=== PATIENT | female | born 1980 | race African-American/Black ===

== ENCOUNTER 2020-07-07 12:51 | Inpatient (IN) | payer OTHER ==
[2020-07-07] MEDS ORDERED: chlordiazePOXIDE HCL 25 MG CAPSULE PO SCH (13:00)
[2020-07-07] MEDS ORDERED: FOLIC ACID INJECTION - 1 MG, THIAMINE HCL 100 MG, MULTIVIT INJECTION ADULT 10 ML in SOD... IVPB ONE (13:10)
[2020-07-07] MEDS ORDERED: chlordiazePOXIDE HCL 10 MG CAPSULE PO ONE (13:10)
--- NOTE | 2020-07-07 13:18 | PDOC ---
History of Present Illness - General Chief Complaint: Substance Abuse Stated Complaint: DETOX Time Seen by Provider: 07/07/20 13:07 History Source: Patient Exam Limitations: No Limitations - History of Present Illness Initial Comments: 07/07/20 13:15 40-year-old female past medical history of EtOH abuse and opioid use disorder presented to ED complaining of withdrawal symptoms. Patient states that she wants to be admitted to [facility] to receive detox. Patient's last drink was 1 day ago. Patient usually drinks 3-4 bottles of wine daily as well as uses Percocets and/or oxycodone daily (last oxycodone use was about 1 week ago). Patient states that she does usually get the shakes if she does not drink and she has a strong urge. Pt otherwise denies: fevers, chills, syncope, lightheadedness, dizziness, headaches, neck pain, chest pain, shortness of breath, palpitations, back pain, abdominal pain, nausea, vomiting, diarrhea, constipation. Past History - Medical History Allergies/Adverse Reactions: Allergies Allergy/AdvReac Type Severity Reaction Status Date / Time No Known Allergies Allergy Verified 07/07/20 12:58 Home Medications: Ambulatory Orders NK [No Known Home Medication] 07/07/20 COPD: Yes - Reproductive History Is Patient Now?: No - Psycho-Social/Smoking History Smoking History: Current every day smoker Number of Cigarettes Smoked Daily: 5 Information on smoking cessation initiated: No - Substance Abuse Hx (Audit-C & DAST Scrn) How often the patient has a drink containing alcohol: 4 0r more times/wk Number of drinks the patient has on a typical day: 5 or 6 How often the patient has six or more drinks on one occasion: Weekly Score: In Men: 4 or > Positive; In Women: 3 or > Positive: 9 Screen Result (Pos requires Nsg. Audit-10AR): Positive In the last yr the pt used illegal drug/Rx for NonMed reason: Yes Score: Yes response is considered Positive: 1 Screen Result (Positive result requires Nsg. DAST-10): Positive *Physical Exam - Vital Signs Last Vital Signs Temp Pulse Resp BP Pulse Ox 98.7 F 88 18 109/74 99 07/07/20 12:54 07/07/20 12:54 07/07/20 12:54 07/07/20 12:54 07/07/20 12:54 - Physical Exam 07/07/20 13:16 Gen: AAOx 3, no acute distress, comfortable, no signs of respiratory distress no tremors HENT: atraumatic, normocephalic with no laceration or contusion. Nasal mucosa without erythema. Oropharynx without erythema or exudates. Mucous membranes moist. No tongue fasciculation EYES: PERRL, EOM intact, conjunctiva pink NECK: supple; trachea midline; no JVD, no lymphadenopathy, or thyromegaly CV: RRR no murmurs, gallops, or rubs. CHEST: CTA b/l no wheezing, rales or rhonchi ABD: +BS/ND. no TTP; soft, no rebound, no guarding EXTREMITY: no cyanosis or erythema. 2+ dorsalis pedis, posterior tibial, and radial pulse. No pedal edema; no calf swelling or tenderness SKIN: no rash, warm and dry, no diaphoresis HEME: no purpura or ecchymosis NEURO: normal speech, CN II-XII intact, sensation intact, normal gait, no cer ebellar deficits MS: 5/5 strength in all extremities, FROM intact in all extremities. ED Treatment Course - LABORATORY CBC & Chemistry Diagram: 07/07/20 13:06 07/07/20 13:06 Medical Decision Making - Medical Decision Making 07/07/20 13:17 40-year-old female requesting detox Vital signs stable CIWA 32 Will obtain labs EKG UA and U tox Administer 1 banana bag and 20 mg of Librium When results are back will reassess and call [facility] for placement EKG WNL Labs and UA WNL Utox positive for Benzos and marijuana Although patient denies SI/HI due to auditory hallucinations which may be due to withdrawal will consult psych. [facility] called for admission, unfortunately due to insurance issues they will not accept patient. Since elevated CIWA score and unsafe for discharge pt admitted to hospitalist, Dr Richardson for further management of care. Discharge - Discharge Information Problems reviewed: Yes Clinical Impression/Diagnosis: Alcohol dependence with withdrawal Qualifiers: Complication of substance-induced condition: uncomplicated Qualified Code(s): F10.230 - Alcohol dependence with withdrawal, uncomplicated Condition: Stable - Admission Yes - Follow up/Referral - Patient Discharge Instructions - Post Discharge Activity
[2020-07-07] MEDS ORDERED: chlordiazePOXIDE 5 MG CAPSULE ONE (13:25)
[2020-07-07 14:12] LABS: BASO % 0.6 % (0-2.0); EOS % 3.2 % (0-4.5); HEMATOCRIT 39.7 % (32.4-45.2); HEMOGLOBIN 13.9 GM/dL (10.7-15.3); LYMPH % 35.5 % (8-40); MCHC 34.9 g/dl (32.0-36.0); MEAN CELL VOLUME 97.4 fl (80-96); MEAN PLT VOLUME 9.1 fl (7.5-11.1); MONO % 14.3 % (3.8-10.2); NEUT % 46.4 % (42.8-82.8); PLATELET COUNT 207 K/MM3 (134-434); RBC 4.08 M/mm3 (3.60-5.2); RDW 13.6 % (11.6-15.6); WHITE BLOOD COUNT 4.4 K/mm3 (4.0-10.0)
[2020-07-07 14:13] LABS: PH,URINE 5.5 (5.0-8.0); URINE APPEARANCE CLOUDY; URINE BILIRUBIN 1+ (NEGATIVE); URINE COLOR DK YELLOW; URINE GLUCOSE (UA) NEGATIVE (NEGATIVE); URINE KETONE 2+ (NEGATIVE); URINE LEUK ESTERASE NEGATIVE (NEGATIVE); URINE NITRITE NEGATIVE (NEGATIVE); URINE PROTEIN TRACE (NEGATIVE)
[2020-07-07 14:23] LABS: COCAINE, UR NEGATIVE ng/ml (CUTOFF=300); METHADONE, UR NEGATIVE ng/ml (CUTOFF=300); OPIATES, URI NEGATIVE ng/ml (CUTOFF=300); PHENCYCLIDINE,URINE NEGATIVE ng/ml (CUTOFF=25); URINE AMPHETAMINES NEGATIVE ng/ml (CUTOFF=500); URINE BARBITURATES NEGATIVE ng/ml (CUTOFF=200)
[2020-07-07 14:24] LABS: URINE BENZODIAZEPINES POSITIVE ng/ml (CUTOFF=200)
[2020-07-07 14:29] LABS: INR 1.04 (0.83-1.09); PROTHROMBIN TIME (PATIENT) 12.3 SEC (9.7-13.0)
[2020-07-07 14:30] LABS: ALBUMIN 4.1 g/dl (3.4-5.0); ALK PHOS 90 U/L (45-117); ANION GAP 9 MMOL/L (8-16); BLOOD UREA NITROGEN 15.7 mg/dL (7-18); CALCIUM 9.5 mg/dL (8.5-10.1); CHLORIDE 106 mmol/L (98-107); CO2 25 mmol/L (21-32); CREATININE 0.8 mg/dL (0.55-1.3); SGOT/AST 19 U/L (15-37); SGPT/ALT 30 U/L (13-61); SODIUM 140 mmol/L (136-145)
[2020-07-07 14:32] LABS: GLUCOSE,RANDOM 109 mg/dL (74-106)
--- NOTE | 2020-07-07 16:19 | EKG ---
Test Reason : Blood Pressure : / mmHG Vent. Rate : 064 BPM Atrial Rate : 064 BPM P-R Int : 128 ms QRS Dur : 092 ms QT Int : 406 ms P-R-T Axes : 026 048 040 degrees QTc Int : 418 ms NORMAL SINUS RHYTHM NORMAL ECG NO PREVIOUS ECGS AVAILABLE Confirmed by MD STEPHAN, JOON ([id number]) on 07/07/2020 4:18:48 PM Referred By: Confirmed By:JOON ROTHMAN MD
[2020-07-07] MEDS ORDERED: chlordiazePOXIDE HCL 10 MG CAPSULE PO PRN (17:03)
--- NOTE | 2020-07-07 17:05 | HP ---
CHIEF COMPLAINT: alcohol intoxication PCP: none HISTORY OF PRESENT ILLNESS: 40 yo female with PMH of etoh abuse and oxycodone abuse presents to the ED for alcohol intoxication- patient states she usually drinks around 3-4 bottles of wine a night (has been drinking for around the last 10 years) and that her last drink was yesterday- she started to feel very anxious/jittery having heart palpitations , in addition started having tactile and auditory hallucinations (no thoughts of harming herself or others) so she took her moms librium yesterday (both of her parents are alcoholics) she also been having nausea/vomiting/decreased appetite for the last week , she still felt very anxious today so she came in to the ED- she also endorses daily oxycodone use (hasn't used in about a week) and has been smoking marijuana daily for the last two weeks . she has never attempted a rehab/detox program; she has never suffered from alcohol withdrawal seizures ER course was notable for: (1) vitals wnl (2)labs wnl; utox positive for benzos and marijuana (3)received 20 of libirum and banana bag Recent Travel: denies PAST MEDICAL HISTORY: see above PAST SURGICAL HISTORY: gastric sleeve 8 years [facility] Social History: Smoking:smokes 1ppd (smoked for the last 10 years) Alcohol:3-4 bottles of wine per night Drugs: daily mairjuana use Allergies No Known Allergies Allergy (Verified 07/07/20 12:58) HOME MEDICATIONS: Home Medications Medication Instructions Recorded NK [No Known Home Medication] 07/07/20 REVIEW OF SYSTEMS CONSTITUTIONAL: Absent: fever, chills, diaphoresis, generalized weakness, malaise, loss of appetite, weight change HEENT: Absent: rhinorrhea, nasal congestion, throat pain, throat swelling, difficulty swallowing, mouth swelling, ear pain, eye pain, visual changes CARDIOVASCULAR: Absent: chest pain, syncope, palpitations, irregular heart rate, lightheadedness, peripheral edema RESPIRATORY: Absent: cough, shortness of breath, dyspnea with exertion, orthopnea, wheezing, stridor, hemoptysis GASTROINTESTINAL: Present: nasuea/vomiting/ diarrhea Absent: abdominal pain, abdominal distension, , constipation, melena, hematochezia GENITOURINARY: Absent: dysuria, frequency, urgency, hesitancy, hematuria, flank pain, genital pain MUSCULOSKELETAL: Absent: myalgia, arthralgia, joint swelling, back pain, neck pain SKIN: Absent: rash, itching, pallor HEMATOLOGIC/IMMUNOLOGIC: Absent: easy bleeding, easy bruising, lymphadenopathy, frequent infections ENDOCRINE: Absent: unexplained weight gain, unexplained weight loss, heat intolerance, cold intolerance NEUROLOGIC: Absent: headache, focal weakness or paresthesias, dizziness, unsteady gait, seizure, mental status changes, bladder or bowel incontinence PSYCHIATRIC: Absent: anxiety, depression, suicidal or homicidal ideation, hallucinations. PHYSICAL EXAMINATION Vital Signs - 24 hr 07/07/20 12:54 Temperature 98.7 F Pulse Rate 88 Respiratory 18 Rate Blood Pressure 109/74 O2 Sat by Pulse 99 Oximetry (%) GENERAL: Awake, alert, and fully oriented, in no acute distress. EYES: PEERLA: EOMI no scleral icterus . HEENT: no tongue fasiculations; dry mucous membranes LUNGS: CTA B/L no rales, rhonchi or wheezing HEART:tachycardic, normal S1 and S2 without murmur, rub or gallop. ABDOMEN: Soft, NT ND +BS in all 4 quadrants MUSCULOSKELETAL: Normal range of motion at all joints. No bony deformities or tenderness. No CVA tenderness. UPPER EXTREMITIES: no tremor appreciated LOWER EXTREMITIES: warm; well-perfused no clubbing/cyanosis or edema NEUROLOGICAL: Cranial nerves II-XII intact. Normal speech. Normal gait. PSYCHIATRIC: Cooperative. Good eye contact. Appropriate mood and affect. SKIN: Warm, dry, normal turgor, no rashes or lesions noted, normal capillary refill. Laboratory Results - last 24 hr 07/07/20 07/07/20 07/07/20 13:06 13:06 13:06 WBC 4.4 RBC 4.08 Hgb 13.9 Hct 39.7 MCV 97.4 H MCH 34.0 H MCHC 34.9 RDW 13.6 Plt Count 207 MPV 9.1 Absolute Neuts (auto) 2.0 Neutrophils % 46.4 Lymphocytes % 35.5 Monocytes % 14.3 H Eosinophils % 3.2 Basophils % 0.6 Nucleated RBC % 0 PT with INR 12.30 INR 1.04 Sodium 140 Potassium 4.0 Chloride 106 Carbon Dioxide 25 Anion Gap 9 BUN 15.7 Creatinine 0.8 Est GFR (CKD-EPI)AfAm 106.13 Est GFR (CKD-EPI)NonAf 91.57 Random Glucose 109 H Calcium 9.5 Total Bilirubin 1.0 AST 19 ALT 30 Alkaline Phosphatase 90 Total Protein 8.0 Albumin 4.1 Beta HCG, Quant < 1.0 Urine Color Urine Appearance Urine pH Ur Specific [place] Urine Protein Urine Glucose (UA) Urine Ketones Urine Blood Urine Nitrite Urine Bilirubin Urine Urobilinogen Ur Leukocyte Esterase Opiates Screen Methadone Screen Barbiturate Screen Phencyclidine Screen Ur Amphetamines Screen MDMA (Ecstasy) Screen Benzodiazepines Screen Cocaine Screen U Marijuana (THC) Screen 07/07/20 07/07/20 13:06 13:06 WBC RBC Hgb Hct MCV MCH MCHC RDW Plt Count MPV Absolute Neuts (auto) Neutrophils % Lymphocytes % Monocytes % Eosinophils % Basophils % Nucleated RBC % PT with INR INR Sodium Potassium Chloride Carbon Dioxide Anion Gap BUN Creatinine Est GFR (CKD-EPI)AfAm Est GFR (CKD-EPI)NonAf Random Glucose Calcium Total Bilirubin AST ALT Alkaline Phosphatase Total Protein Albumin Beta HCG, Quant Urine Color Dk yellow Urine Appearance Cloudy Urine pH 5.5 Ur Specific [place] 1.034 Urine Protein Trace Urine Glucose (UA) Negative Urine Ketones 2+ H Urine Blood Negative Urine Nitrite Negative Urine Bilirubin 1+ H Urine Urobilinogen 1.0 Ur Leukocyte Esterase Negative Opiates Screen Negative Methadone Screen Negative Barbiturate Screen Negative Phencyclidine Screen Negative Ur Amphetamines Screen Negative MDMA (Ecstasy) Screen Negative Benzodiazepines Screen Positive A* Cocaine Screen Negative U Marijuana (THC) Screen Positive A* ASSESSMENT/PLAN: 40 yo female with PMH of etoh abuse and oxycodone abuse presents to the ED for alcohol withdrawal #Alcohol Withdrawal -librium protocol once urine is done and patient not markedly tremulous or withdrawing currently -thiamine/folate/MVI -IVF fluid -monitor CIWA score -[facility] consult -psych consult given hallucinations however likely 2/2 intox -pepcid f/e/n not on standing fluids monitor electrolytes regualr diet dvt ppx: scds Family Medical History Family History: As Documented Other Family History: alcohol abuse Problem List - Problem (1) Alcohol dependence with withdrawal Code(s): F10.239 - ALCOHOL DEPENDENCE WITH WITHDRAWAL, UNSPECIFIED Qualifiers: Complication of substance-induced condition: uncomplicated Qualified Code(s): F10.230 - Alcohol dependence with withdrawal, uncomplicated Visit type - Emergency Visit Emergency Visit: Yes ED Registration Date: 07/07/20 Care time: The patient presented to the Emergency Department on the above date and was hospitalized for further evaluation of their emergent condition. - New Patient This patient is new to me today: Yes Date on this admission: 07/07/20 - Critical Care Critical Care patient: No ATTENDING PHYSICIAN STATEMENT I saw and evaluated the patient. I reviewed the resident's note and discussed the case with the resident. I agree with the resident's findings and plan as documented. SUBJECTIVE: OBJECTIVE: ASSESSMENT AND PLAN:
[2020-07-07] MEDS ORDERED: THIAMINE HCL 100 MG TABLET (FP) ONE ×2 (17:49→17:52)
[2020-07-07] MEDS: THIAMINE HCL 100 MG TABLET (FP) PO SCH (18:23)
[2020-07-07] MEDS: SODIUM CHLORIDE 1,000 ML IV SCH (18:25)
[2020-07-07 18:47] VITALS: BMI 29.9
[2020-07-08] MEDS ORDERED: MELATONIN 5 MG TABLETS PO ONE (00:01)
[2020-07-08] MEDS ORDERED: chlordiazePOXIDE HCL 10 MG CAPSULE PO ONE (00:18)
[2020-07-08 08:22] LABS: BASO % 0.4 % (0-2.0); EOS % 3.6 % (0-4.5); HEMATOCRIT 36.1 % (32.4-45.2); HEMOGLOBIN 12.1 GM/dL (10.7-15.3); LYMPH % 43.8 % (8-40); MCH 31.8 pg (25.7-33.7); MCHC 33.5 g/dl (32.0-36.0); MEAN CELL VOLUME 94.9 fl (80-96); MEAN PLT VOLUME 9.1 fl (7.5-11.1); MONO % 17.1 % (3.8-10.2); NEUT % 35.1 % (42.8-82.8); PLATELET COUNT 178 K/MM3 (134-434); RDW 13.7 % (11.6-15.6); WHITE BLOOD COUNT 5.4 K/mm3 (4.0-10.0)
--- NOTE | 2020-07-08 08:36 | PN ---
Teaching Attending Note Name of Resident: Mary Machuca ATTENDING PHYSICIAN STATEMENT I saw and evaluated the patient. I reviewed the resident's note and discussed the case with the resident. I agree with the resident's findings and plan as documented. SUBJECTIVE: Patient seen and examined at bedside, admitted for ?auditory hallucinations, ?Etoh intoxication but negative Etoh levels and no clinical suspicion for withdrawal/intoxication. Has h/o PSA w/ Etoh/benzos, currently endorses auditory hallucinations but denies SI/HI/VH. OBJECTIVE: GA calm, mild ?physiological tremor, speaking in full sentences HEENT NC/AT, EOMI, MMM Chest CTAB CVS S1, S2+, RRR Abd Soft, NT, ND, BS+ Ext no LE edema Vital Signs (72 hours) 07/07/20 07/07/20 07/07/20 12:54 18:05 18:34 Temperature 98.7 F 98.5 F Pulse Rate 88 64 Pulse Rate [ 84 Radial] Respiratory 18 18 18 Rate Blood Pressure 109/74 130/58 L Blood Pressure 119/70 [Left Arm] O2 Sat by Pulse 99 98 100 Oximetry (%) 07/07/20 07/07/20 07/07/20 18:54 21:00 22:00 Temperature Pulse Rate Pulse Rate [ Radial] Respiratory Rate Blood Pressure Blood Pressure [Left Arm] O2 Sat by Pulse 100 100 100 Oximetry (%) 07/08/20 05:17 Temperature 97.3 F L Pulse Rate 56 L Pulse Rate [ Radial] Respiratory 18 Rate Blood Pressure 142/71 Blood Pressure [Left Arm] O2 Sat by Pulse 100 Oximetry (%) Laboratory Results - last 24 hr 07/07/20 07/07/20 07/07/20 13:06 13:06 13:06 WBC 4.4 RBC 4.08 Hgb 13.9 Hct 39.7 MCV 97.4 H MCH 34.0 H MCHC 34.9 RDW 13.6 Plt Count 207 MPV 9.1 Absolute Neuts (auto) 2.0 Neutrophils % 46.4 Lymphocytes % 35.5 Monocytes % 14.3 H Eosinophils % 3.2 Basophils % 0.6 Nucleated RBC % 0 PT with INR 12.30 INR 1.04 Sodium 140 Potassium 4.0 Chloride 106 Carbon Dioxide 25 Anion Gap 9 BUN 15.7 Creatinine 0.8 Est GFR (CKD-EPI)AfAm 106.13 Est GFR (CKD-EPI)NonAf 91.57 Random Glucose 109 H Calcium 9.5 Total Bilirubin 1.0 AST 19 ALT 30 Alkaline Phosphatase 90 Total Protein 8.0 Albumin 4.1 Beta HCG, Quant < 1.0 Urine Color Urine Appearance Urine pH Ur Specific [place] Urine Protein Urine Glucose (UA) Urine Ketones Urine Blood Urine Nitrite Urine Bilirubin Urine Urobilinogen Ur Leukocyte Esterase Opiates Screen Methadone Screen Barbiturate Screen Phencyclidine Screen Ur Amphetamines Screen MDMA (Ecstasy) Screen Benzodiazepines Screen Cocaine Screen U Marijuana (THC) Screen Alcohol, Quantitative < 3 COVID-19 (RICARDO) 07/07/20 07/07/20 07/07/20 13:06 13:06 13:06 WBC RBC Hgb Hct MCV MCH MCHC RDW Plt Count MPV Absolute Neuts (auto) Neutrophils % Lymphocytes % Monocytes % Eosinophils % Basophils % Nucleated RBC % PT with INR INR Sodium Potassium Chloride Carbon Dioxide Anion Gap BUN Creatinine Est GFR (CKD-EPI)AfAm Est GFR (CKD-EPI)NonAf Random Glucose Calcium Total Bilirubin AST ALT Alkaline Phosphatase Total Protein Albumin Beta HCG, Quant Urine Color Dk yellow Urine Appearance Cloudy Urine pH 5.5 Ur Specific [place] 1.034 Urine Protein Trace Urine Glucose (UA) Negative Urine Ketones 2+ H Urine Blood Negative Urine Nitrite Negative Urine Bilirubin 1+ H Urine Urobilinogen 1.0 Ur Leukocyte Esterase Negative Opiates Screen Negative Methadone Screen Negative Barbiturate Screen Negative Phencyclidine Screen Negative Ur Amphetamines Screen Negative MDMA (Ecstasy) Screen Negative Benzodiazepines Screen Positive A* Cocaine Screen Negative U Marijuana (THC) Screen Positive A* Alcohol, Quantitative COVID-19 (RICARDO) Not detected 07/07/20 17:39 WBC RBC Hgb Hct MCV MCH MCHC RDW Plt Count MPV Absolute Neuts (auto) Neutrophils % Lymphocytes % Monocytes % Eosinophils % Basophils % Nucleated RBC % PT with INR INR Sodium Potassium Chloride Carbon Dioxide Anion Gap BUN Creatinine Est GFR (CKD-EPI)AfAm Est GFR (CKD-EPI)NonAf Random Glucose Calcium Total Bilirubin AST ALT Alkaline Phosphatase Total Protein Albumin Beta HCG, Quant Urine Color Urine Appearance Urine pH Ur Specific [place] Urine Protein Urine Glucose (UA) Urine Ketones Urine Blood Urine Nitrite Urine Bilirubin Urine Urobilinogen Ur Leukocyte Esterase Opiates Screen Methadone Screen Barbiturate Screen Phencyclidine Screen Ur Amphetamines Screen MDMA (Ecstasy) Screen Benzodiazepines Screen Cocaine Screen U Marijuana (THC) Screen Alcohol, Quantitative < 3 COVID-19 (RICARDO) Home Medications Medication Instructions Recorded NK [No Known Home Medication] 07/07/20 Current Medications Generic Name Dose Route Start Last Admin Trade Name Zayda PRN Reason Stop Dose Admin Famotidine 20 mg 07/08/20 10:00 Pepcid - PO DAILY ERIN Folic Acid 1 mg 07/08/20 10:00 Folic Acid - PO DAILY ERIN Sodium Chloride 1,000 mls @ 75 mls/hr 07/07/20 17:45 07/07/20 18:25 Normal Saline - IV 75 mls/hr ASDIR ERIN Administration Multivitamins/Minerals/Vitamin C 1 tab 07/08/20 10:00 Tab-A-Vit - PO DAILY ERIN Thiamine HCl 100 mg 07/07/20 17:15 07/07/20 18:23 Vitamin B1 - PO Not Given DAILY ERIN ASSESSMENT AND PLAN: 40 F Suspected acute psychotic episode v.s. malingering H/o Etoh abuse Benzodiazepine dependence Plan: Send thyroid panel, B12 levels Psych evaluation, if persistently psychotic or if psychotic symptoms worsen obtain Head CT Supplement Thiamine/FA Watch closely for withdrawal symptoms, currently BP WNL/HR WNL/EKG unremarkable no clinical signs of acute intoxication (besides Marijuana), hold off on Librium and keep PRN for now DVt ppx: OOB to chair, Heparin SC (supplement H2 [place]) Med-surg
[2020-07-08 08:55] LABS: ALBUMIN 3.2 g/dl (3.4-5.0); BILIRUBIN,TOTAL 0.8 mg/dL (0.2-1); BLOOD UREA NITROGEN 16.6 mg/dL (7-18); CALCIUM 8.5 mg/dL (8.5-10.1); CREATININE 0.7 mg/dL (0.55-1.3); PHOSPHOROUS 3.9 mg/dL (2.5-4.9); POTASSIUM 3.7 mmol/L (3.5-5.1); TOT PROT 6.2 g/dl (6.4-8.2)
--- NOTE | 2020-07-08 09:45 | CONSULT ---
Consult Detox [facility] Reason for Current Admission/Consult: Alcohol withdrawal Referred by:: Dr. Alexey Machuca - History History of Present Illness: Hx obtained from chart 40-year-old female past medical history of EtOH abuse and opioid use disorder presented to ED complaining of withdrawal symptoms. Patient states that she wants to be admitted to [facility] to receive detox. Patient's last drink was 1 day ago. Patient usually drinks 3-4 bottles of wine daily as well as uses Perco cets and/or oxycodone daily (last oxycodone use was about 1 week ago). Patient states that she does usually get the shakes if she does not drink and she has a strong urge. Pt otherwise denies: fevers, chills, syncope, lightheadedness, dizziness, headaches, neck pain, chest pain, shortness of breath, palpitations, back pain, abdominal pain, nausea, vomiting, diarrhea, constipation. PMH: COPD PSH: gastric sleeve SOC: smokes one pack per day Wine: 3-4 bottles daily Marijuana: daily Admission CiWA 23, auditory hallucinations noted Current Medications Generic Name Dose Route Start Last Admin Trade Name Zayda PRN Reason Stop Dose Admin Famotidine 20 mg 07/08/20 10:00 Pepcid - PO DAILY ERIN Folic Acid 1 mg 07/08/20 10:00 Folic Acid - PO DAILY [facility] Sodium Chloride 1,000 mls @ 75 mls/hr 07/07/20 17:45 07/07/20 18:25 Normal Saline - IV 75 mls/hr ASDIR [facility] Administration Multivitamins/Minerals/Vitamin C 1 tab 07/08/20 10:00 Tab-A-Vit - PO DAILY [facility] Thiamine HCl 100 mg 07/07/20 17:15 07/07/20 18:23 Vitamin B1 - PO Not Given DAILY [facility] Laboratory Tests 07/07/20 07/07/20 07/07/20 13:06 13:06 13:06 WBC 4.4 RBC 4.08 Hgb 13.9 Hct 39.7 MCV 97.4 H MCH 34.0 H MCHC 34.9 RDW 13.6 Plt Count 207 MPV 9.1 Absolute Neuts (auto) 2.0 Neutrophils % 46.4 Lymphocytes % 35.5 Monocytes % 14.3 H Eosinophils % 3.2 Basophils % 0.6 Nucleated RBC % 0 PT with INR 12.30 INR 1.04 Sodium 140 Potassium 4.0 Chloride 106 Carbon Dioxide 25 Anion Gap 9 BUN 15.7 Creatinine 0.8 Est GFR (CKD-EPI)AfAm 106.13 Est GFR (CKD-EPI)NonAf 91.57 Random Glucose 109 H Calcium 9.5 Phosphorus Magnesium Total Bilirubin 1.0 AST 19 ALT 30 Alkaline Phosphatase 90 Total Protein 8.0 Albumin 4.1 Beta HCG, Quant < 1.0 Urine Color Urine Appearance Urine pH Ur Specific [place] Urine Protein Urine Glucose (UA) Urine Ketones Urine Blood Urine Nitrite Urine Bilirubin Urine Urobilinogen Ur Leukocyte Esterase Opiates Screen Methadone Screen Barbiturate Screen Phencyclidine Screen Ur Amphetamines Screen MDMA (Ecstasy) Screen Benzodiazepines Screen Cocaine Screen U Marijuana (THC) Screen Alcohol, Quantitative < 3 COVID-19 (RICARDO) 07/07/20 07/07/20 07/07/20 13:06 13:06 13:06 WBC RBC Hgb Hct MCV MCH MCHC RDW Plt Count MPV Absolute Neuts (auto) Neutrophils % Lymphocytes % Monocytes % Eosinophils % Basophils % Nucleated RBC % PT with INR INR Sodium Potassium Chloride Carbon Dioxide Anion Gap BUN Creatinine Est GFR (CKD-EPI)AfAm Est GFR (CKD-EPI)NonAf Random Glucose Calcium Phosphorus Magnesium Total Bilirubin AST ALT Alkaline Phosphatase Total Protein Albumin Beta HCG, Quant Urine Color Dk yellow Urine Appearance Cloudy Urine pH 5.5 Ur Specific [place] 1.034 Urine Protein Trace Urine Glucose (UA) Negative Urine Ketones 2+ H Urine Blood Negative Urine Nitrite Negative Urine Bilirubin 1+ H Urine Urobilinogen 1.0 Ur Leukocyte Esterase Negative Opiates Screen Negative Methadone Screen Negative Barbiturate Screen Negative Phencyclidine Screen Negative Ur Amphetamines Screen Negative MDMA (Ecstasy) Screen Negative Benzodiazepines Screen Positive A* Cocaine Screen Negative U Marijuana (THC) Screen Positive A* Alcohol, Quantitative COVID-19 (RICARDO) Not detected 07/07/20 07/08/20 07/08/20 17:39 07:05 07:05 WBC 5.4 RBC 3.80 Hgb 12.1 Hct 36.1 MCV 94.9 MCH 31.8 MCHC 33.5 RDW 13.7 Plt Count 178 MPV 9.1 Absolute Neuts (auto) 1.9 Neutrophils % 35.1 L D Lymphocytes % 43.8 H D Monocytes % 17.1 H Eosinophils % 3.6 Basophils % 0.4 Nucleated RBC % 0 PT with INR INR Sodium 142 Potassium 3.7 Chloride 111 H Carbon Dioxide 25 Anion Gap 6 L BUN 16.6 Creatinine 0.7 Est GFR (CKD-EPI)AfAm 124.73 Est GFR (CKD-EPI)NonAf 107.62 Random Glucose 92 Calcium 8.5 Phosphorus 3.9 Magnesium 2.0 Total Bilirubin 0.8 AST 13 L ALT 24 Alkaline Phosphatase 76 Total Protein 6.2 L Albumin 3.2 L Beta HCG, Quant Urine Color Urine Appearance Urine pH Ur Specific [place] Urine Protein Urine Glucose (UA) Urine Ketones Urine Blood Urine Nitrite Urine Bilirubin Urine Urobilinogen Ur Leukocyte Esterase Opiates Screen Methadone Screen Barbiturate Screen Phencyclidine Screen Ur Amphetamines Screen MDMA (Ecstasy) Screen Benzodiazepines Screen Cocaine Screen U Marijuana (THC) Screen Alcohol, Quantitative < 3 COVID-19 (RICARDO) Vital Signs (72 hours) 07/07/20 07/07/20 07/07/20 12:54 18:05 18:34 Temperature 98.7 F 98.5 F Pulse Rate 88 64 Pulse Rate [ 84 Radial] Respiratory 18 18 18 Rate Blood Pressure 109/74 130/58 L Blood Pressure 119/70 [Left Arm] O2 Sat by Pulse 99 98 100 Oximetry (%) 07/07/20 07/07/20 07/07/20 18:54 21:00 22:00 Temperature Pulse Rate Pulse Rate [ Radial] Respiratory Rate Blood Pressure Blood Pressure [Left Arm] O2 Sat by Pulse 100 100 100 Oximetry (%) 07/08/20 05:17 Temperature 97.3 F L Pulse Rate 56 L Pulse Rate [ Radial] Respiratory 18 Rate Blood Pressure 142/71 Blood Pressure [Left Arm] O2 Sat by Pulse 100 Oximetry (%) - History Source History Provided By: Medical Record - Alcohol/Substance Use Hx Alcohol Use: Yes Hx Substance Use: Yes - Past Medical History ...LMP: 07/01/20 ...: No Assessment Plan - Diagnosis (1) Alcohol dependence with withdrawal Status: Acute Qualifiers: Complication of substance-induced condition: uncomplicated Qualified Code(s): F10.230 - Alcohol dependence with withdrawal, uncomplicated - Plan Plan: 1. Librium detox protocol initiated upon admission 2. per notes, pt can not come to [facility] due to insurance issues 3. follow up care to be arranged by Case Management, either outpatient program and ? inpatient group home if covered by insurance. - Medication Detox Regimen/Protocol: Niall
[2020-07-08] MEDS ORDERED: PT OWN MED DRAWER 7, Y5N ONE (10:19)
[2020-07-08] MEDS: FOLIC ACID 1 MG TABLET (FP) PO SCH (10:22)
[2020-07-08] MEDS: FAMOTIDINE 20 MG TABLET PO SCH (10:23)
[2020-07-08] MEDS: THIAMINE HCL 100 MG TABLET (FP) PO SCH (10:23)
[2020-07-08] MEDS: MULTIVITAMINS (DAILY MVI) TABLET (FP) PO SCH (10:23)
[2020-07-08] MEDS: SODIUM CHLORIDE 1,000 ML IV SCH (10:23)
--- NOTE | 2020-07-08 13:08 | EKG ---
Test Reason : Blood Pressure : / mmHG Vent. Rate : 061 BPM Atrial Rate : 061 BPM P-R Int : 130 ms QRS Dur : 086 ms QT Int : 392 ms P-R-T Axes : 025 044 035 degrees QTc Int : 394 ms NORMAL SINUS RHYTHM WITH SINUS ARRHYTHMIA NORMAL ECG WHEN COMPARED WITH ECG OF 07-JUL-2020 14:09, NO SIGNIFICANT CHANGE WAS FOUND Confirmed by MD ROTHMAN MOYSES ([id number]) on 07/08/2020 1:08:11 PM Referred By: Leola MARIA Confirmed By:JOON ROTHMAN MD
--- NOTE | 2020-07-08 14:41 | PN ---
Teaching Attending Note Name of Resident: Sancho Mar ATTENDING PHYSICIAN STATEMENT I saw and evaluated the patient. I reviewed the resident's note and discussed the case with the resident. I agree with the resident's findings and plan as documented. SUBJECTIVE: Seen and examined at bedside. Patient is alert and oriented x3. No hand tremo rs, mild tongue fasciculations, no sweating, and vital signs are stable. Patient does not appear to be in acute alcohol withdrawal. Patient reports subjective visual and auditory hallucinations mostly overnight. Pending psychiatry evaluation. [facility] will not accept her insurance OBJECTIVE Last Vital Signs Temp Pulse Resp BP Pulse Ox 97.3 F L 56 L 18 142/71 100 07/08/20 05:17 07/08/20 05:17 07/08/20 05:17 07/08/20 05:17 07/08/20 05:17 PE: Per resident note Labs/Imaging: reviewed ASSESSMENT/PLAN 40-year-old female with a history of EtOH abuse, opioid use, and marijuana use presents with alcohol withdrawal and requesting to be admitted to [facility]. #Alcohol withdrawal Patient received no benzodiazepines since last night and does not appear to to be in alcohol withdrawal. The patient reports visual and auditory hallucinations she does not have the clinical appearance of someone in delirium tremens -4 days since last drink Continue to hold benzodiazepines and observe Continue vitamin treatment -per [facility] they do not accept pt's insurance #Auditory and visual hallucinations, emotional lability. Patient is tearful and emotionally labile during the exam and appears depressed. Denies suicidal ideation. Psychiatry evaluation -suspect depression #Sinus arythmia -likely PACs -monitor, no tx needed at this time
--- NOTE | 2020-07-08 16:17 | PN ---
Physical Exam: SUBJECTIVE: Patient seen and examined. Pt. states she feels anxious. Pt. endorses hearing voices that "sound familiar." Pt. states they do not tell her commands but that she doesn't hear them clearly all the time, just whispering. Pt. endorses seeing flashing lights in her periphery. Pt. endorses that she stopped drinking 4-5 days ago, Pt. takes oxycodone at home about 30mg/day to "feel good," and to "sleep" sometimes. Pt. denies any SI/HI currently. Pt. endorses drinking heavily to the point of "blacking out." Pt. endorses vomiting but is unsure of vomiting blood as she drinks wine mainly. Pt. endorses having regained consciousness and having urinated on her self but denies anyone ever telling her she had a seizure, or ever being intubated before. Pt. denies any chest pain or shortness of breath currently. OBJECTIVE: Vital Signs Period Temp Pulse Resp BP Sys/Rosa Pulse Ox Last 24 Hr 97.3 F-98.6 F 56-84 18-18 107-142/58-80 98-100 GENERAL: The patient is awake, alert, and fully oriented, in acute distress 2/2 pain. HEAD: Normal with no signs of trauma. EYES: PERRL, extraocular movements intact, sclera anicteric, conjunctiva clear. ENT: Ears normal, nares patent, oropharynx clear without exudates, moist mucous membranes. NECK: Trachea midline, full range of motion, supple. LUNGS: Breath sounds equal, clear to auscultation bilaterally, no wheezes, no crackles, no accessory muscle use. HEART: Irregular rhythm, regular rate, S1, S2 without murmur ABDOMEN: Soft, nontender, nondistended, normoactive bowel sounds, no guarding, no rebound, hepatomegaly? EXTREMITIES: 2+ dorsal pedal pulses, warm, no calf tenderness, well-perfused, no edema. NEUROLOGICAL: Cranial nerves II through XII grossly intact. Normal speech, Normal gait. No dysmetria PSYCH: Anxious, Having auditory and visual hallucinations SKIN: Warm, dry, normal turgor, R. antecubital fossa swelling around IV site. Laboratory Results - last 24 hr 07/07/20 07/07/20 07/07/20 13:06 13:06 17:39 WBC RBC Hgb Hct MCV MCH MCHC RDW Plt Count MPV Absolute Neuts (auto) Neutrophils % Lymphocytes % Monocytes % Eosinophils % Basophils % Nucleated RBC % Sodium 140 Potassium 4.0 Chloride 106 Carbon Dioxide 25 Anion Gap 9 BUN 15.7 Creatinine 0.8 Est GFR (CKD-EPI)AfAm 106.13 Est GFR (CKD-EPI)NonAf 91.57 Random Glucose 109 H Calcium 9.5 Phosphorus Magnesium Total Bilirubin 1.0 AST 19 ALT 30 Alkaline Phosphatase 90 Total Protein 8.0 Albumin 4.1 Beta HCG, Quant < 1.0 Alcohol, Quantitative < 3 < 3 COVID-19 (RICARDO) Not detected 07/08/20 07/08/20 07:05 07:05 WBC 5.4 RBC 3.80 Hgb 12.1 Hct 36.1 MCV 94.9 MCH 31.8 MCHC 33.5 RDW 13.7 Plt Count 178 MPV 9.1 Absolute Neuts (auto) 1.9 Neutrophils % 35.1 L D Lymphocytes % 43.8 H D Monocytes % 17.1 H Eosinophils % 3.6 Basophils % 0.4 Nucleated RBC % 0 Sodium 142 Potassium 3.7 Chloride 111 H Carbon Dioxide 25 Anion Gap 6 L BUN 16.6 Creatinine 0.7 Est GFR (CKD-EPI)AfAm 124.73 Est GFR (CKD-EPI)NonAf 107.62 Random Glucose 92 Calcium 8.5 Phosphorus 3.9 Magnesium 2.0 Total Bilirubin 0.8 AST 13 L ALT 24 Alkaline Phosphatase 76 Total Protein 6.2 L Albumin 3.2 L Beta HCG, Quant Alcohol, Quantitative COVID-19 (RICARDO) Active Medications Generic Name Dose Route Start Last Admin Trade Name Barrettq PRN Reason Stop Dose Admin Chlordiazepoxide HCl 10 mg 07/08/20 17:00 Librium - PO H1I-STZ ERIN Famotidine 20 mg 07/08/20 10:00 07/08/20 10:23 Pepcid - PO 20 mg DAILY ERIN Administration Folic Acid 1 mg 07/08/20 10:00 07/08/20 10:22 Folic Acid - PO 1 mg DAILY ERIN Administration Sodium Chloride 1,000 mls @ 75 mls/hr 07/07/20 17:45 07/08/20 10:23 Normal Saline - IV 75 mls/hr ASDIR ERIN Administration Multivitamins/Minerals/Vitamin C 1 tab 07/08/20 10:00 07/08/20 10:23 Tab-A-Vit - PO 1 tab DAILY ERIN Administration Thiamine HCl 100 mg 07/07/20 17:15 07/08/20 10:23 Vitamin B1 - PO 100 mg DAILY ERIN Administration ASSESSMENT/PLAN: Pt. is a 40 y.o. F w/ PMHx. of Polysubstance Abuse presents for Detox after being rejected from [facility] for insurance issues. #EtoH Withdrawal CIWA: ~20, Was 23 on Admission Detox consult appreciated started Librium 10mg Q6H Psych consult appreciated for auditory and visual hallucinations. As Pt. has elevated CIWA score that is mostly elevated via subjective criteria, need to r/o organic brain disease. EKG shows: NSR but with Sinus arrythmia, QTc: 394 #Left Upper Extremity weakness and Numbess Pt. states that she is not forth coming about this deficit because she is embarrassed. f/u Head and CSpine CT to r/o compression fracture vs. nerve impingement #FEN d/c IVF, encourage PO intake; line was also infiltrated monitor electrolytes and replete as needed Regular diet #DVT Ppx. Early ambulation Visit type - Emergency Visit Emergency Visit: Yes ED Registration Date: 07/07/20 Care time: The patient presented to the Emergency Department on the above date and was hospitalized for further evaluation of their emergent condition. - New Patient This patient is new to me today: Yes Date on this admission: 07/08/20 - Critical Care Critical Care patient: No - Discharge Referral Referred to [facility] Med [facility] No ATTENDING PHYSICIAN STATEMENT I saw and evaluated the patient. I reviewed the resident's note and discussed the case with the resident. I agree with the resident's findings and plan as documented. SUBJECTIVE: OBJECTIVE: ASSESSMENT AND PLAN:
[2020-07-08] MEDS: chlordiazePOXIDE HCL 10 MG CAPSULE PO SCH (17:13)
--- NOTE | 2020-07-08 17:32 | CON.PSY ---
Psychiatry Consult Chief Complaint: 40 year old female withy a long History of Alcohol and multiple Substance abuse , never been to [facility] seen for Psych eval. Estrellita had bee3n hallucinating wghen she goes cold [place] from [id number].. Feels much better today.. Requesting [facility]. - Previous Psychiatric Treatment Outpatient: None - Previous Substance Abuse Treatment Outpatient: None Inpatient: None - Reason for Previous Treatment Reason for Previous Treatment: Alcohol Abuse - Current Medications Current Medications: Active Medications Chlordiazepoxide HCl (Librium -) 10 mg PO F4C-NEB [facility] Last Admin: 07/08/20 17:13 Dose: 10 mg Documented by: Famotidine (Pepcid -) 20 mg PO DAILY [facility] Last Admin: 07/08/20 10:23 Dose: 20 mg Documented by: Folic Acid (Folic Acid -) 1 mg PO DAILY [facility] Last Admin: 07/08/20 10:22 Dose: 1 mg Documented by: Sodium Chloride (Normal Saline -) 1,000 mls @ 75 mls/hr IV ASDIR [facility] Last Admin: 07/08/20 10:23 Dose: 75 mls/hr Documented by: Multivitamins/Minerals/Vitamin C (Tab-A-Vit -) 1 tab PO DAILY [facility] Last Admin: 07/08/20 10:23 Dose: 1 tab Documented by: Thiamine HCl (Vitamin B1 -) 100 mg PO DAILY [facility] Last Admin: 07/08/20 10:23 Dose: 100 mg Documented by: - Allergies Allergies: Allergies Allergy/AdvReac Type Severity Reaction Status Date / Time No Known Allergies Allergy Verified 07/07/20 12:58 - Current Mental Status Evaluation Appearance: Well Groomed - Affect Appropriateness: Appropriate to Content - Mood Mood: Euthymic - Speech/Language Expressive: Coherent - Psychomotor Activity Psychomotor Activity: Normal - Cognition Attention: Alert Memory, Immediate Recall: Intact Memory, Short Term: 3/3 - Concentration Serial Sevens Intact: Yes - Abstraction Proverb Interpretation: Intact Judgement: Moderately Impaired - Insight Insight: Intact - Impulse Control Impulse Control: Minimally Impaired - Suicidal Ideation Suicidal Ideation: No - Homicidal Ideation Homicidal Ideation: No Assessment/Plan 1) Significant improvement in Hallucinations.. Oers not need ant Psych meds now./. Should be sent to [facility] andc may need Psych eval in Few Weeks to assess any need for Psych meds..
[2020-07-09] MEDS: chlordiazePOXIDE HCL 10 MG CAPSULE PO SCH ×3 (01:38→11:32)
[2020-07-09] MEDS ORDERED: chlordiazePOXIDE 5 MG CAPSULE PO SCH (05:00)
[2020-07-09] MEDS: FAMOTIDINE 20 MG TABLET PO SCH (09:22)
[2020-07-09] MEDS: MULTIVITAMINS (DAILY MVI) TABLET (FP) PO SCH (09:22)
[2020-07-09] MEDS: THIAMINE HCL 100 MG TABLET (FP) PO SCH (09:23)
[2020-07-09] MEDS: FOLIC ACID 1 MG TABLET (FP) PO SCH (09:23)
--- NOTE | 2020-07-09 13:10 | PN ---
Teaching Attending Note Name of Resident: Savannah Beck ATTENDING PHYSICIAN STATEMENT I saw and evaluated the patient. I reviewed the resident's note and discussed the case with the resident. I agree with the resident's findings and plan as documented. SUBJECTIVE: Seen and examined at bedside. Patient feeling better. States visual halluci nations has resolved and only minor auditory hallucinations. Psychiatry did not recommend antipsychotic medications. Patient is medically cleared for discharge. Attempting to find alternates inpatient rehab as patient is not eligible for [facility] but if not can be discharged home today. OBJECTIVE Last Vital Signs Temp Pulse Resp BP Pulse Ox 97.3 F L 56 L 18 142/71 100 07/08/20 05:17 07/08/20 05:17 07/08/20 05:17 07/08/20 05:17 07/08/20 05:17 PE: Per resident note Labs/Imaging: reviewed ASSESSMENT/PLAN 40-year-old female with a history of EtOH abuse, opioid use, and marijuana use presents with alcohol withdrawal and requesting to be [facility].Withdrawal symptoms have resolved and patient is medically cleared for discharge to inpatient rehab or home if unable to find a spot
--- NOTE | 2020-07-09 15:32 | DS ---
Physical Exam: SUBJECTIVE: Patient seen and examined at bedside. No acute events overnight. OBJECTIVE: Vital Signs Period Temp Pulse Resp BP Sys/Rosa Pulse Ox Last 24 Hr 98.1 F-99 F 67-80 20-20 95-141/54-90 97-100 PHYSICAL EXAM GENERAL: The patient is awake, alert, and fully oriented, in acute distress 2/2 pain. HEAD: Normal with no signs of trauma. EYES: PERRL, extraocular movements intact, sclera anicteric, conjunctiva clear. ENT: Ears normal, nares patent, oropharynx clear without exudates, moist mucous membranes. NECK: Trachea midline, full range of motion, supple. LUNGS: Breath sounds equal, clear to auscultation bilaterally, no wheezes, no crackles, no accessory muscle use. HEART: Irregular rhythm, regular rate, S1, S2 without murmur ABDOMEN: Soft, nontender, nondistended, normoactive bowel sounds, no guarding, no rebound, hepatomegaly? EXTREMITIES: 2+ dorsal pedal pulses, warm, no calf tenderness, well-perfused, no edema. NEUROLOGICAL: Cranial nerves II through XII grossly intact. Normal speech, Normal gait. No dysmetria PSYCH: Anxious, Having auditory and visual hallucinations SKIN: Warm, dry, normal turgor, R. antecubital fossa swelling around IV site. LABS Laboratory Results - last 24 hr 07/09/20 13:45 Stool Occult Blood Negative HOSPITAL COURSE: Date of Admission:07/07/20 40F w/ PMHx. of Polysubstance Abuse presents for Detox after being rejected from [facility] for insurance issues. Upon initial presentation, pt was found to have VS wnl, Utox +benzs/marijuana. She received Librium and a banana bag in the ED. Pt complained of persistent visual and auditory hallucinations, although clinically she did not appear to be in acute alcohol withdrawal. She was seen by psychiatry with no need for treatment with psych meds and recommendation to proceed to inpatient rehab. Additionally, she complained of chronic LUE numbness. Head CT and CT C-spine were neg for acute pathology. CT C-spine did show multilevel degenerative disc dz. Throughout her hospital stay, her symptoms improved. She was advised to discontinue her alcohol and oxycodone use and to follow up with her primary care physician, psychiatrist and neurologist. She was also advised to start taking Folic acid, MVI, and Thiamine. Pt was discharged to an inpatient rehab facility. Date of Discharge: 07/09/20 Minutes to complete discharge: 36 Discharge Summary Problems reviewed: Yes Reason For Visit: ALCOHOL DEPENDENCE WITH WITHDRAWL Current Active Problems Alcohol dependence with withdrawal (Acute) Condition: Stable - Instructions Diet, Activity, Other Instructions: You were sent here for detox. You were not able to go to [facility] because of your insurance. You were seen here by an wound specialist and a psychiatrist. We treated your Detox with Librium. We imaged your head and neck and saw that you have some slight narrowing where the nerve exits the spinal cord on both sides at the C5-C6 level. There was nothing immediately wrong on the imaging. You are now stable for discharge to an inpatient rehab facility. Medications Please take the following medications: START Folic Acid 1 mg once a day by mouth. START Thiamine 100 mg once a day by mouth. START a Multivitamin once a day by mouth. Recommendations Please STOP drinking alcohol. Please stop taking pills that were NOT prescribed to you specifically. Follow Up Please follow up with your PCP within 1 week. WE have provided the [facility] is you do not have one. Please follow up with your psychiatrist within 1 week. Please return to the ED if you are having worsening symptoms or have any concerning symptoms. Referrals: [facility] [place] [Provider Group] - 1 Week Jovanny Li MD [Staff Physician] - Disposition: I.P. ALCOHOL/SUBS ABUSE REHAB - Home Medications Comprehensive Discharge Medication List: Ambulatory Orders Folic Acid - 1 mg PO DAILY tablet 07/09/20 Multivitamins [Multivit ([facility] Form[facility])] 1 tab PO DAILY tab 07/09/20 Thiamine HCl [Vitamin B1 -] 100 mg PO DAILY tablet 07/09/20 This patient is new to me today: Yes Date on this admission: 07/09/20 Emergency Visit: Yes ED Registration Date: 07/07/20 Care time: The patient presented to the Emergency Department on the above date and was hospitalized for further evaluation of their emergent condition. Critical Care patient: No - Discharge Referral Referred to [facility] Med P.C.: No ATTENDING PHYSICIAN STATEMENT I saw and evaluated the patient. I reviewed the resident's note and discussed the case with the resident. I agree with the resident's findings and plan as documented. SUBJECTIVE: OBJECTIVE: ASSESSMENT AND PLAN:
[2020-07-09 15:38] VITALS: BP 124/75; PULSE 73; TEMP 98.4
[2020-07-10] MEDS ORDERED: chlordiazePOXIDE HCL 10 MG CAPSULE PO PRN
[2020-07-10] MEDS ORDERED: chlordiazePOXIDE HCL 10 MG CAPSULE PO SCH (05:00)
[2020-07-11] MEDS ORDERED: chlordiazePOXIDE HCL 10 MG CAPSULE PO ONE (05:00)
== END 2020-07-09 17:12 | disposition other institution (70) | DRG 897 ==
LOC: JER 12:51 → JERBED 16:39 → J8W 18:02
PROVIDERS: ATTEND Internal Medicine
DX: F10.230 Alcohol dependence with withdrawal, uncomplicated (principal); R44.0 Auditory hallucinations; J44.9 Chronic obstructive pulmonary disease, unspecified; F11.10 Opioid abuse, uncomplicated; F12.10 Cannabis abuse, uncomplicated; R44.1 Visual hallucinations; I49.9 Cardiac arrhythmia, unspecified; R20.0 Anesthesia of skin; F17.210 Nicotine dependence, cigarettes, uncomplicated
CPT/HCPCS: 36415; 70450-TC; 72125-TC; 80053; 80307; 81003; 82272; 83735; 84100; 84702; 85025; 85610; 93005; 93010; 99285-25; U0003